=== PATIENT | female | born 1960 | race Two or more races ===

== ENCOUNTER 2018-09-29 01:27 | Emergency (ER) | payer OTHER ==
[~2018-09-29] VITALS: Ht 152.4 cm; Wt 63.5 kg
[~2018-09-29 01:27] MED LIST: ASCO500T11 GT; ASPI-498 OR; ASPI81TA27 PO; ATOR1TAB PO; B-COTAB56 OR; BETH50TA2 PO; CHOL20007 PO; ESTR0.3T PO; FLUC150T41 PO; LEVO150T10 PO; METF-370 PO; OMEG300C7 OR; QUET100T46 PO; SENN1TAB14 PO; TRAZ150T79 PO; [UNRECOGNIZED DRUG - CODE] SC
[2018-09-29 02:04] VITALS: BP 154/66
[2018-09-29] MEDS ORDERED: ACETAMINOPHEN 325 MG TAB PO ONE (06:45)
[2018-09-29] MEDS ORDERED: ACETAMINOPHEN 500 MG TAB PO ONE (06:45)
== END 2018-09-29 07:09 | disposition home or self-care (01) ==
LOC: ER 01:37
DX: S46.911A Strain of unspecified muscle, fascia and tendon at shoulder and upper arm level, right arm, initial encounter (principal); R51 Headache; W06.XXXA Fall from bed, initial encounter; Y93.89 Activity, other specified; Y92.092 Bedroom in other non-institutional residence as the place of occurrence of the external cause; Y99.8 Other external cause status; E11.9 Type 2 diabetes mellitus without complications; K21.9 Gastro-esophageal reflux disease without esophagitis; E78.5 Hyperlipidemia, unspecified; Z98.51 Tubal ligation status; Z86.73 Personal history of transient ischemic attack (TIA), and cerebral infarction without residual deficits; Z79.82 Long term (current) use of aspirin; Z79.4 Long term (current) use of insulin; Z79.899 Other long term (current) drug therapy
CPT/HCPCS: 70450; 73030

== ENCOUNTER 2020-12-03 23:43 | Emergency (ER) | payer OTHER ==
[~2020-12-03] VITALS: Ht 144.8 cm; Wt 58.5 kg
[~2020-12-03 23:43] MED LIST changes: +ASPI-543 PO; -ASPI81TA27 PO; +ATOR-47 PO; -ATOR1TAB PO; +FLUC150T2 PO; -FLUC150T41 PO; -QUET100T46 PO; +QUET100T47 PO; -TRAZ150T79 PO; +TRAZ1TAB12 PO
[2020-12-04 02:10] VITALS: BP 127/71
[2020-12-04] MEDS ORDERED: HYDROcodone-ACET 5/325MG TAB PO ONE (02:15)
[2020-12-04] MEDS ORDERED: ONDANSETRON ODT 4 MG TAB PO ONE (02:15)
[2020-12-04 03:02] LABS: Urine Bacteria MANY /hpf (None Seen); Urine Blood 3+ /uL (Negative); Urine Specific Gravity 1.022 (1.001-1.035); Urine WBC 139 /hpf (0 - 5)
== END 2020-12-04 04:28 | disposition home or self-care (01) ==
LOC: ER 23:43
DX: N39.0 Urinary tract infection, site not specified (principal); R81 Glycosuria; E11.9 Type 2 diabetes mellitus without complications; K21.9 Gastro-esophageal reflux disease without esophagitis; E78.5 Hyperlipidemia, unspecified; Z86.73 Personal history of transient ischemic attack (TIA), and cerebral infarction without residual deficits; Z79.4 Long term (current) use of insulin; Z79.82 Long term (current) use of aspirin; Z79.899 Other long term (current) drug therapy
CPT/HCPCS: 81001; 99283; Q0162

== ENCOUNTER 2020-12-05 04:46 | Emergency (ER) | payer OTHER ==
[~2020-12-05] VITALS: Ht 157.5 cm; Wt 57.6 kg
[2020-12-05 05:28] VITALS: BP 128/78
[2020-12-05] MEDS ORDERED: ONDANSETRON ODT 4 MG TAB PO ONE (05:30)
[2020-12-05] MEDS ORDERED: HYDROcodone-ACET 10/325MG TAB PO ONE (05:45)
== END 2020-12-05 06:21 | disposition home or self-care (01) ==
LOC: ER 04:46
DX: N12 Tubulo-interstitial nephritis, not specified as acute or chronic (principal); E11.9 Type 2 diabetes mellitus without complications; K21.9 Gastro-esophageal reflux disease without esophagitis; E78.5 Hyperlipidemia, unspecified; Z86.73 Personal history of transient ischemic attack (TIA), and cerebral infarction without residual deficits; Z79.82 Long term (current) use of aspirin; Z79.4 Long term (current) use of insulin; Z79.899 Other long term (current) drug therapy
CPT/HCPCS: 99283; Q0162

== ENCOUNTER 2021-10-17 19:38 | Inpatient (IN) | payer OTHER ==
[~2021-10-17] VITALS: Ht 154.9 cm; Wt 64.9 kg
[2021-10-17] MEDS ORDERED: ASPirin-EC 325mg tab PO ONE (20:00)
[2021-10-17] MEDS ORDERED: NITROGLYCERIN 0.4 MG SL TAB SL ONE (20:00)
[2021-10-17] MEDS ORDERED: MORPHINE SULFATE INJ 2 MG/ml SYRG IV ONE (20:00)
[2021-10-17 22:12] LABS: Basophils # (auto) 0.1 10 ^3/uL (0-0.2); Basophils % (auto) 0.8 % (0.0-2.0); Eosinophils # (auto) 0 10 ^3/uL (0-0.8); Eosinophils % (auto) 0.5 % (0.0-7.0); Hematocrit 28.8 % (36.0-46.0); Lymphocytes # (auto) 1.9 10 ^3/uL (0.4-5.4); Lymphocytes % (auto) 23.4 % (10.0-50.0); Mean Corpuscular Hemoglobin 33.8 pg (28.0-32.0); Mean Corpuscular Hgb Conc. 34.7 g/dL (32.0-36.0); Mean Corpuscular Volume 97.6 fL (80.0-100.0); Monocytes # (auto) 0.4 10 ^3/uL (0-1.3); Monocytes % (auto) 4.3 % (0.0-12.0); Neutrophils # (auto) 5.9 10 ^3/uL (1.6-8.6); Nucleated Red Blood Cells % 0.1 %; Red Blood Cells 2.95 10^6/uL (4.0-5.20); Red Cell Distribution Width 14.4 % (11.8-14.3); White Blood Cell 8.3 10^3/uL (4.4-10.8)
[2021-10-17 22:28] LABS: INR 1.03 (0.9-1.15); Partial Thromboplastin Time 25.7 sec (23.6-33.0)
[2021-10-17 22:39] LABS: Calcium 8.7 mg/dL (8.5-10.1); Magnesium 2.1 mg/dL (1.6-2.6); Potassium 4.7 mmol/L (3.5-5.1)
[2021-10-17 22:47] LABS: BUN/Creatinine Ratio 11.6; Bilirubin, Total 0.2 mg/dL (0.2-1.0); Total Protein 6.9 g/dL (6.4-8.2)
[2021-10-17] MEDS ORDERED: DOCUSATE SOD 100 MG CAP PO PRN (23:00)
[2021-10-17] MEDS ORDERED: ONDANSETRON HCL 4 MG/2 ML VIAL IV PRN (23:00)
[2021-10-17] MEDS ORDERED: ACETAMINOPHEN 325 MG TAB PO PRN (23:00)
[2021-10-17] MEDS ORDERED: DEXTROSE (50%) 50ML SYRG IV PRN (23:00)
[2021-10-17] MEDS ORDERED: ENOXAPARIN SOD 100 MG/1 ML SYRINGE SC ONE (23:30)
[2021-10-17] MEDS ORDERED: MORPHINE SULFATE INJ 2 MG/ml SYRG IV PRN (23:45)
[2021-10-17] MEDS ORDERED: NITROGLYCERIN 0.4 MG SL TAB SL PRN (23:45)
[2021-10-18] VITALS (52 sets, daily range): BP systolic 83–122; BP diastolic 34–69
[2021-10-18] MEDS ORDERED: ALBUMIN 25% 50 ML IV ONE
[2021-10-18] MEDS: HYDROcodone-ACET 5/325MG TAB PO PRN ×3 (00:14→20:27)
[2021-10-18] MEDS ORDERED: HEPARIN SODIUM (PORCINE) 5000 UNITS/ML 1ML VIAL SC SCH (06:00)
[2021-10-18 06:11] LABS: Basophils # (auto) 0 10 ^3/uL (0-0.2); Basophils % (auto) 0.4 % (0.0-2.0); Eosinophils # (auto) 0 10 ^3/uL (0-0.8); Eosinophils % (auto) 0.8 % (0.0-7.0); Hematocrit 25.1 % (36.0-46.0); Hemoglobin 8.7 g/dL (12.2-16.2); Lymphocytes # (auto) 2.3 10 ^3/uL (0.4-5.4); Lymphocytes % (auto) 41.7 % (10.0-50.0); Mean Corpuscular Hemoglobin 33.7 pg (28.0-32.0); Mean Corpuscular Hgb Conc. 34.5 g/dL (32.0-36.0); Mean Corpuscular Volume 97.7 fL (80.0-100.0); Monocytes # (auto) 0.3 10 ^3/uL (0-1.3); Monocytes % (auto) 5.2 % (0.0-12.0); Neutrophils # (auto) 2.9 10 ^3/uL (1.6-8.6); Neutrophils % (auto) 51.9 % (37.0-80.0); Red Blood Cells 2.57 10^6/uL (4.0-5.20); Red Cell Distribution Width 14.7 % (11.8-14.3); White Blood Cell 5.6 10^3/uL (4.4-10.8)
[2021-10-18 06:20] LABS: Potassium 4.7 mmol/L (3.5-5.1)
[2021-10-18] MEDS: SODIUM CHLOR 0.9% PF (SALINE LOCK) 10ML VIAL/SYR IV SCH ×3 (06:23→22:18)
[2021-10-18 06:27] LABS: Albumin 2.6 g/dL (3.4-5.0); BUN/Creatinine Ratio 15.2; Calcium 8.2 mg/dL (8.5-10.1)
[2021-10-18 06:29] LABS: Bilirubin, Total 0.3 mg/dL (0.2-1.0)
[2021-10-18 06:47] LABS: Cholesterol 169 mg/dL (< 200); HDL Cholesterol 39 mg/dL (40-59); LDL Cholesterol 107 mg/dL (< 100); Triglycerides 105 mg/dL (< 150)
[2021-10-18] MEDS: LEVOTHYROXINE SODIUM 50 MCG TAB PO SCH (08:18)
[2021-10-18] MEDS: InsuLIN REG 1unit/0.01ml Soln (100units/ml) SC SCH ×2 (08:20→16:53)
[2021-10-18] MEDS: ACCU-CHEK COMFORT CURVE STRIP VI SCH ×3 (08:20→22:18)
[2021-10-18] MEDS: NOREPINEPHRINE 8 MG/250ML KIT 250 ML IV SCH (08:35)
[2021-10-18] MEDS ORDERED: ANGIOMAX 250 MG VIAL IV ONE (09:08)
[2021-10-18] MEDS ORDERED: SODIUM CHL 0.9% 0 ML ONE (09:09)
[2021-10-18] MEDS ORDERED: VERAPAMIL 2.5MG/ML INJ 2ML VIAL IV ONE (09:09)
[2021-10-18] MEDS ORDERED: fentaNYL CITRATE 100 MCG/2 ML VL ONE (09:09)
[2021-10-18] MEDS ORDERED: HEPARIN SODIUM (PORCINE) 5000 UNITS/ML 1ML VIAL ONE ×2 (09:09→10:18)
[2021-10-18] MEDS ORDERED: MIDAZOLAM HCL 2MG/2ML 2ml VIAL (1mg/ml) ONE (09:09)
[2021-10-18] MEDS ORDERED: LIDOCAINE 2%HCL (LOCAL ANESTH.) INJ 10ml MDV ONE ×2 (09:10→10:08)
[2021-10-18] MEDS ORDERED: ATROPINE SULF 1 MG/10ml SYR ONE (09:54)
[2021-10-18] MEDS ORDERED: HEPARIN DRIP/D5W 100UNITS/ML 250 ML IV ONE (10:54)
[2021-10-18] MEDS ORDERED: HEPARIN DRIP/D5W 100UNITS/ML 250 ML IV SCH (11:00)
[2021-10-18] MEDS: ASPirin 81 mg TAB PO SCH (11:14)
[2021-10-18 17:36] LABS: Basophils # (auto) 0.1 10 ^3/uL (0-0.2); Basophils % (auto) 0.8 % (0.0-2.0); Eosinophils # (auto) 0 10 ^3/uL (0-0.8); Eosinophils % (auto) 0.4 % (0.0-7.0); Hematocrit 28.4 % (36.0-46.0); Hemoglobin 9.3 g/dL (12.2-16.2); Lymphocytes # (auto) 1.4 10 ^3/uL (0.4-5.4); Lymphocytes % (auto) 21.1 % (10.0-50.0); Mean Corpuscular Hemoglobin 32.1 pg (28.0-32.0); Mean Corpuscular Hgb Conc. 32.8 g/dL (32.0-36.0); Mean Corpuscular Volume 97.9 fL (80.0-100.0); Monocytes # (auto) 0.4 10 ^3/uL (0-1.3); Monocytes % (auto) 5.5 % (0.0-12.0); Neutrophils # (auto) 4.7 10 ^3/uL (1.6-8.6); Neutrophils % (auto) 72.2 % (37.0-80.0); Nucleated Red Blood Cells % 0.1 %; White Blood Cell 6.6 10^3/uL (4.4-10.8)
[2021-10-18 17:58] LABS: INR 1.05 (0.9-1.15)
[2021-10-18 19:06] LABS: Partial Thromboplastin Time 114.8 sec (23.6-33.0)
[2021-10-18] MEDS ORDERED: ATORVASTATIN 20 MG TAB PO SCH (22:00)
[2021-10-18] MEDS ORDERED: InsuLIN REG 1unit/0.01ml Soln (100units/ml) SC SCH (22:00)
[2021-10-19] VITALS (51 sets, daily range): BP systolic 89–137; BP diastolic 33–64
[2021-10-19 02:14] LABS: Basophils # (auto) 0 10 ^3/uL (0-0.2); Eosinophils # (auto) 0 10 ^3/uL (0-0.8); Hemoglobin 8.4 g/dL (12.2-16.2); Lymphocytes # (auto) 1.7 10 ^3/uL (0.4-5.4)
[2021-10-19 02:15] LABS: Basophils % (auto) 0.3 % (0.0-2.0); Eosinophils % (auto) 0.4 % (0.0-7.0); Hematocrit 24.2 % (36.0-46.0); Lymphocytes % (auto) 27.2 % (10.0-50.0); Mean Corpuscular Hemoglobin 33.9 pg (28.0-32.0); Mean Corpuscular Hgb Conc. 34.7 g/dL (32.0-36.0); Mean Corpuscular Volume 97.8 fL (80.0-100.0); Monocytes # (auto) 0.5 10 ^3/uL (0-1.3); Monocytes % (auto) 7.5 % (0.0-12.0); Neutrophils % (auto) 64.6 % (37.0-80.0); Red Blood Cells 2.48 10^6/uL (4.0-5.20); Red Cell Distribution Width 14.6 % (11.8-14.3); White Blood Cell 6.1 10^3/uL (4.4-10.8)
[2021-10-19 02:27] LABS: BUN/Creatinine Ratio 21.1; Calcium 8.3 mg/dL (8.5-10.1); Potassium 4.5 mmol/L (3.5-5.1)
[2021-10-19 02:29] LABS: INR 1.06 (0.9-1.15); Partial Thromboplastin Time 47.6 sec (23.6-33.0)
[2021-10-19] MEDS: SODIUM CHLOR 0.9% PF (SALINE LOCK) 10ML VIAL/SYR IV SCH ×2 (06:07→17:04)
[2021-10-19] MEDS: LEVOTHYROXINE SODIUM 50 MCG TAB PO SCH (06:09)
[2021-10-19] MEDS: ACCU-CHEK COMFORT CURVE STRIP VI SCH ×3 (06:10→17:19)
[2021-10-19] MEDS: InsuLIN REG 1unit/0.01ml Soln (100units/ml) SC SCH ×3 (06:16→17:17)
[2021-10-19] MEDS: MORPHINE SULFATE INJ 2 MG/ml SYRG IV PRN ×3 (06:36→12:29)
[2021-10-19] MEDS: NOREPINEPHRINE 8 MG/250ML KIT 250 ML IV SCH (08:30)
[2021-10-19] MEDS: HEPARIN DRIP/D5W 100UNITS/ML 250 ML IV SCH ×2 (08:45→17:07)
[2021-10-19] MEDS: ASPirin 81 mg TAB PO SCH (09:00)
[2021-10-19] MEDS: HYDROcodone-ACET 5/325MG TAB PO PRN ×3 (09:00→20:16)
[2021-10-19 10:09] LABS: INR 1.1 (0.9-1.15); Partial Thromboplastin Time 49.1 sec (23.6-33.0)
[2021-10-19] MEDS ORDERED: OPTISON 3ml Vial for INJ IV ONE (10:15)
[2021-10-19] MEDS ORDERED: NICOTINE 21MG/24 HR TOPICAL PATCH TD SCH (13:15)
[2021-10-19 18:10] LABS: INR 1.09 (0.9-1.15); Partial Thromboplastin Time 60.2 sec (23.6-33.0)
== END 2021-10-19 21:00 | disposition short-term general hospital (02) | DRG 270 ==
LOC: ER 19:38 → TELE 23:39 → ICU WEST 10-18 12:40
PROVIDERS: ADMIT Nurse Practitioner Family; ATTEND Internal Medicine Pulmonary Disease
PROC: 5A02210 Assistance with Cardiac Output using Balloon Pump, Continuous (ICD-10-PCS; principal; 2021-10-18)
PROC: 4A023N7 Measurement of Cardiac Sampling and Pressure, Left Heart, Percutaneous Approach (ICD-10-PCS; 2021-10-18)
PROC: B2111ZZ Fluoroscopy of Multiple Coronary Arteries using Low Osmolar Contrast (ICD-10-PCS; 2021-10-18)
PROC: B2151ZZ Fluoroscopy of Left Heart using Low Osmolar Contrast (ICD-10-PCS; 2021-10-18)
DX: I21.4 Non-ST elevation (NSTEMI) myocardial infarction (principal); R57.0 Cardiogenic shock; I50.23 Acute on chronic systolic (congestive) heart failure; D64.9 Anemia, unspecified; E03.9 Hypothyroidism, unspecified; E11.65 Type 2 diabetes mellitus with hyperglycemia; E78.5 Hyperlipidemia, unspecified; E88.09 Other disorders of plasma-protein metabolism, not elsewhere classified; F17.210 Nicotine dependence, cigarettes, uncomplicated; I25.10 Atherosclerotic heart disease of native coronary artery without angina pectoris; Z20.822 Contact with and (suspected) exposure to COVID-19; I95.9 Hypotension, unspecified; F32.A Depression, unspecified; K21.9 Gastro-esophageal reflux disease without esophagitis; R79.89 Other specified abnormal findings of blood chemistry; Z79.4 Long term (current) use of insulin; Z86.73 Personal history of transient ischemic attack (TIA), and cerebral infarction without residual deficits; Z95.1 Presence of aortocoronary bypass graft; Z82.49 Family history of ischemic heart disease and other diseases of the circulatory system; Z83.3 Family history of diabetes mellitus; Z87.440 Personal history of urinary (tract) infections
CPT/HCPCS: 33967; 36415; 71045; 80048; 80053; 80061; 82962; 83036; 83735; 83880; 84443; 84484; 85025; 85610; 85730; 87081; 93005; 93306; 93458; 96365; 96367; 96372; 96375; 99152; 99153; G0378; J2001; J2250